=== PATIENT | male | born 1980 | race Caucasian/White ===

== ENCOUNTER → 2024-07-15 08:47 | Outpatient (REF) | payer OTHER, SELFPAY | LOC: PET 08:47 | PROVIDERS: ATTENDING PHYSICIAN Internal Medicine Pulmonary Disease | DX: R91.8 Other nonspecific abnormal finding of lung field (principal) | CPT/HCPCS: 78815; A9552 ==

== ENCOUNTER → 2024-11-01 10:19 | Outpatient (REF) | payer OTHER, SELFPAY | LOC: PET 10:19 | PROVIDERS: ATTENDING PHYSICIAN Internal Medicine Pulmonary Disease | DX: R91.8 Other nonspecific abnormal finding of lung field (principal) | CPT/HCPCS: 78815; A9552 ==